=== PATIENT | female | born 1990 | race Caucasian/White ===

== ENCOUNTER 2021-08-13 22:16 | Inpatient (IN) | payer BC, OTHER ==
[~2021-08-13] VITALS: Ht 160 cm; Wt 83.0 kg
[~2021-08-13 22:16] MED LIST: AMOX500C25 PO; IBUP-2809 PO
[2021-08-13 22:22] VITALS: BP 125/90
--- NOTE | 2021-08-13 22:26 | NUR ---
PATIENT TO LOBBY
--- NOTE | 2021-08-13 23:48 | NUR ---
PATIENT TO ROOM 8 AMBULATORY
--- NOTE | 2021-08-14 00:06 | NUR ---
Patient BIB by family from home. C/O abdominal pain x 3 days. Patient reported, had mid right upper abdominal pain since Thursday with nausea. no diarrhea, no fever.
--- NOTE | 2021-08-14 00:32 | NUR ---
Dr. Guzman examining patient.
[2021-08-14] MEDS ORDERED: MORPHINE SULFATE 4 MG/ML SYR IVP ONE ×2 (00:40→04:25)
[2021-08-14] MEDS ORDERED: ONDANSETRON 4 MG/2 ML VIAL IVP ONE ×2 (00:40→05:50)
[2021-08-14] MEDS ORDERED: NACL 0.9% 1,000 ML IV ONE (00:40)
[2021-08-14 00:51] LABS: APPEARANCE,URINE CLEAR (CLEAR); BILIRUBIN,URINE NEGATIVE (NEGATIVE); BLOOD, URINE TRACE-I (NEGATIVE); COLOR,URINE YELLOW (YELLOW); LEUKOCYTE ESTERASE ,URINE NEGATIVE (NEGATIVE); NITRITE, URINE NEGATIVE (NEGATIVE); UGLUCOSE NEGATIVE (NEGATIVE)
[2021-08-14 00:53] LABS: BASOPHILS # (AUTO) 0.1 K/uL (0.00-0.22); BASOPHILS % (AUTO) 0.5 % (0.0-2.0); EOSINOPHILS # (AUTO) 0.2 K/uL (0-0.4); EOSINOPHILS % (AUTO) 1.2 % (0.0-4.0); HEMATOCRIT 40.4 % (36-48); HEMOGLOBIN 13.3 g/dL (12.0-16.0); LYMPHOCYTES % (AUTO) 16.1 % (20.5-51.1); MEAN CORPUSCULAR HEMOGLOBIN 28 pg (27-31); MEAN CORPUSCULAR HGB CONC 33 g/dL (33-37); MEAN CORPUSCULAR VOLUME 84.9 fL (80-94); MONOCYTES # (AUTO) 0.7 K/uL (0.8-1.0); MONOCYTES % (AUTO) 5.9 % (1.7-9.3); NEUTROPHILS # (AUTO) 9.3 K/uL (1.8-7.7); NEUTROPHILS % (AUTO) 76.3 % (42.2-75.2); PLATELET COUNT (AUTO) 267 K/uL (140-450); RED BLOOD CELL COUNT(AUTO) 4.76 MIL/uL (4.20-5.40); RED CELL DISTRIBUTION WIDTH 13.4 % (11.6-13.7); WHITE BLOOD COUNT (AUTO) 12.2 K/uL (4.8-10.8)
[2021-08-14 00:54] LABS: RBC,URINE 0-5 /HPF (0-5)
[2021-08-14 00:55] LABS: WBC,URINE 0-5 /HPF (0-5)
[2021-08-14 01:14] LABS: ALBUMIN 3.8 g/dL (3.4-5.0); CARBON DIOXIDE 28.6 mmol/L (21-32); CREATININE 0.7 mg/dL (0.6-1.3); POTASSIUM 3.6 mmol/L (3.5-5.1); TOTAL BILIRUBIN 0.4 mg/dL (0.0-1.0)
--- NOTE | 2021-08-14 01:45 | NUR ---
Patient taken to CT scan via wheel chair.
[2021-08-14] MEDS ORDERED: ALUMINUM HYD/MAG/SIMETHICONE 30 ML UDC PO ONE (01:55)
--- NOTE | 2021-08-14 03:49 | NUR ---
Patient is sleeping. vss.
--- NOTE | 2021-08-14 04:22 | NUR ---
Patient reported, abdominal pain, pain rate 10/09, Dr. Guzman notified.
--- NOTE | 2021-08-14 05:35 | NUR ---
Patient had nausea, Dr. Guzman notified.
--- NOTE | 2021-08-14 05:42 | NUR ---
US at bedside.
[2021-08-14] MEDS ORDERED: PIPERACILLIN/TAZOBACTAM 3.375 GM in DEXTROSE 5% 50 ML IV ONE (05:55)
--- NOTE | 2021-08-14 06:01 | NUR ---
COVID-19 swabs collected and sent to lab.
[2021-08-14] MEDS ORDERED: PIPERACILLIN/TAZOBACTAM 3.375 GM VIAL IV ONE ×2 (06:22→17:47)
--- NOTE | 2021-08-14 07:15 | NUR ---
Report given to MARY Muller and endorse care of patient.
--- NOTE | 2021-08-14 07:43 | NUR ---
30 Y/O F BIB FAMILY C/O ABD PAIN FOR 3 DAYS. NO C/O OF PAIN THIS MORNING. VITALS 107/65, 84P, 98 O2 ROOM AIR, 97.7 T. PT WALKED TO THE BATHROOM WITH NO ASSISTANS.
[2021-08-14] MEDS ORDERED: ZOLPIDEM 5 MG TAB PO PRN (07:50)
[2021-08-14] MEDS ORDERED: ACETAMINOPHEN 325 MG TAB PO PRN (07:50)
[2021-08-14] MEDS ORDERED: LORazepam 2 MG/ML VIAL IM/IVP PRN (07:50)
[2021-08-14] MEDS ORDERED: DOCUSATE SODIUM 100 MG GELCAP PO PRN (07:50)
[2021-08-14] MEDS ORDERED: POTASSIUM CHLORIDE 10 MEQ TABER PO PRN (07:50)
[2021-08-14] MEDS ORDERED: MORPHINE SULFATE 2 MG/ML SYR IVP PRN (07:50)
[2021-08-14] MEDS ORDERED: MAG SULF 2000 MG/WATER PREMIX 50 ML IV PRN (07:50)
[2021-08-14] MEDS ORDERED: SODIUM PHOS / POTASSIUM PHOS 1 PKT PDR PO PRN (07:50)
--- NOTE | 2021-08-14 08:13 | NUR ---
XR AT PT BEDSIDE
[2021-08-14] MEDS: NACL 0.9% 1,000 ML IV SCH ×2 (08:34→17:50)
[2021-08-14] MEDS: ONDANSETRON 4 MG/2 ML VIAL IVP PRN ×2 (08:36→10:58)
[2021-08-14] MEDS ORDERED: LORazepam 1 MG TAB PO PRN (08:55)
[2021-08-14 09:03] LABS: AMYLASE 31 U/L (25-115); CHOL/HDL RATIO 3.1 (1-4.5); HDL CHOLESTEROL 47 mg/dL (40-60); LDL (CALC) 85 mg/dL (60-100); LIPASE 74 U/L (73-393); PHOSPHORUS 3.4 mg/dL (2.5-4.9); THYROID STIMULATING HORMONE 1.21 uIU/mL (0.34-3.74); TRIGLYCERIDES 60 mg/dL (30-150)
--- NOTE | 2021-08-14 09:05 | NUR ---
Pt report given to CHARBEL MORFIN ROOM 104A. Transfer of care at this time.
--- NOTE | 2021-08-14 09:31 | NUR ---
RECEIVE ENDORSEMENT FROM ER NURSE LISSETT WHILE PATIENT TRANSFER TO BED, STABLE. PATIENT COME FOR ABD PAIN X 3DAYS, DIAGNOSIS CHOLECYSTITIS. PIV 20G AT LAC W/ NS INFUSING AT 100ML/HR. NPO AT THIS TIME
[2021-08-14 09:32] LABS: PROTHROMBIN TIME 9.6 secs (10.8-13.4)
--- NOTE | 2021-08-14 11:03 | NUR ---
DC PLANN[age] YRS OLD FEMALE PATIENT WAS ADMITTED FROM HOME WITH A DX OF CHOLECYSTITIS. PATIENT HAS NO MEDICAL HX. CXR SHOWED BORDERLINE PULMONARY VASCULAR CONGESTION. CT ABD AND US ABDOMEN SHOWED CHOLECYSTITIS. BLOOD AND URINE CULTURE PENDING. RAPID COVID TEST NEGATIVE. ADMINISTERED IVF, IV ABX ZOSYN MORPHINE IV FOR PAIN. CONSULTED WITH SURGEON DR BURRIS. DC PLAN TO GO HOME WHEN STABLE. CM TO FOLLOW Addendum: 08/14/21 at 1137 by Clarisse Sheets CM DC PLANNING: CM SPOKE WITH THE PATIENT AT BEDSIDE AND CONFIRMED HER ADDRESS AND CORRECTED PHONE NUMBER. SHE LIVES IN A CONVERTED GARAGE BEHIND HER PARENTS HOUSE AND LIVES WITH HER 3 CHILDREN. SHE SEES HER PMD [place] NEEDED AND IS NORMALLY INDEPENDENT IN ALL ACTIVITIES. 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 HER PARENTS ARE SUPPORTIVE AND AVAILABLE FOR PATIENT NEEDS. FAMILY WILL TRANSPORT THE PATIENT HOME WHEN SHE IS READY FOR DISCHARGE. CM WILL FOLLOW.
--- NOTE | 2021-08-14 11:21 | NUR ---
PATIENT HAS BEEN SCREENED AND CATEGORIZED LOW NUTRITION RISK. PATIENT WILL BE SEEN WITHIN 7 DAYS OF ADMISSION. 08/20/[address]
[2021-08-14 12:00] VITALS: BP 107/65
[2021-08-14 16:00] VITALS: BP 115/77
[2021-08-14] MEDS ORDERED: BUPIVACAINE MPF 0.25% 10 ML VIAL INJ ONE (17:04)
[2021-08-14] MEDS ORDERED: LIDOCAINE/EPI 1% 1:100000 20 ML VIAL INJ ONE (17:04)
[2021-08-14] MEDS ORDERED: fentaNYL citrate 0.05 MG/ML VIAL ONE (17:45)
[2021-08-14] MEDS ORDERED: PROPOFOL 200 MG/20 ML VIAL IV ONE (17:46)
[2021-08-14] MEDS ORDERED: SUCCINYLCHOLINE CHLORIDE 200 MG/10 ML VIAL IVP ONE (17:46)
[2021-08-14] MEDS ORDERED: ONDANSETRON 4 MG/2 ML VIAL IVP PRN (18:00)
[2021-08-14] MEDS ORDERED: HYDROmorphone 1 MG/ML AMP IVP PRN (18:00)
[2021-08-14] MEDS ORDERED: diphenhydrAMINE 50 MG/ML VIAL IVP PRN (18:00)
[2021-08-14] MEDS ORDERED: MEPERIDINE 25 MG/ML SYR IVP PRN (18:00)
[2021-08-14] MEDS: LACTATED RINGERS 1,000 ML IV SCH (18:00)
[2021-08-14] MEDS ORDERED: SEVOFLURANE 250 ML BTL INH ONE (18:05)
[2021-08-14] MEDS ORDERED: ROCURONIUM 50 MG/5 ML VIAL IV ONE (18:20)
[2021-08-14] MEDS ORDERED: ONDANSETRON 4 MG/2 ML VIAL ONE (18:28)
[2021-08-14] MEDS ORDERED: MEPERIDINE 50 MG/ML SYR ONE (18:38)
[2021-08-14] MEDS ORDERED: SUGAMMADEX SODIUM 200 MG/2 ML VIAL IV ONE (19:33)
--- NOTE | 2021-08-14 19:34 | NUR ---
ENDORSE PT TO PM SHIFT NURSE WHILE PATIENT IN OR FOR LAPAROSCOPIC CHOLECYSTOMY. PATIENT COME FOR ABD PAIN X 3DAYS, DIAGNOSIS CHOLECYSTITIS. PIV 20G AT LAC.
[2021-08-14] MEDS ORDERED: MEPERIDINE 25 MG/ML SYR ONE (19:49)
--- NOTE | 2021-08-14 20:50 | NUR ---
RECD. FROM OR S/P LAP CHOLECYSTECTOMY VIA BED ACCOMPANIED BY NURSE GUERRA. PATIENT RESTING IN BED, AWAKE, A/OX4. IV OF NS INFUSING AT 80 ML/HR, LEFT AC G20. RESPIRATION EVEN AND UNLABORED. INCISION IN THE ABDOMEN (4) WITH DERMA MAGALLON, OPEN TO AIR DRY, NO BLEEDING NOTED. ON BILATERAL LEG SEQUENTIALS. PAIN IN THE ABDOMEN 5/10, WILL MEDICATE PER MD ORDER. VS STABLE.
[2021-08-14] MEDS: HYDROcodone/APAP 5/325 MG 1 TAB TAB PO PRN (21:07)
[2021-08-14 22:00] VITALS: BP 116/77
[2021-08-15] VITALS: BP_SYST 104; BP_SYST 116; BP_DIAS 64; BP_DIAS 77
--- NOTE | 2021-08-15 | NUR ---
SLEEPING COMFORTABLY IN BED, NO DISTRESS NOTED.
[2021-08-15] MEDS: NACL 0.9% 1,000 ML IV SCH ×2 (00:17→03:50)
[2021-08-15] MEDS: ONDANSETRON 4 MG/2 ML VIAL IVP PRN (01:04)
--- NOTE | 2021-08-15 01:04 | NUR ---
PT COMPLAINTS OF NAUSEA, ONDANSETRON ADMINISTERED ORDERED.
--- NOTE | 2021-08-15 02:00 | NUR ---
NO NAUSEA NOTED, COMFORTABLE IN BED.
[2021-08-15] MEDS: LACTATED RINGERS 1,000 ML IV SCH ×2 (02:20→10:40)
[2021-08-15 04:00] VITALS: BP 106/68
--- NOTE | 2021-08-15 04:00 | NUR ---
ASSISTED OUT OF BED OT GO TO BR TO VOID, ABLE TO VOID FREELY MODERATE AMOUNT OF YELLOW URINE.
[2021-08-15] MEDS: HYDROcodone/APAP 5/325 MG 1 TAB TAB PO PRN ×2 (04:50→12:23)
--- NOTE | 2021-08-15 06:00 | NUR ---
ABLE TO SLEPT WELL. VS REMAIN STABLE.
[2021-08-15 06:19] LABS: BASOPHILS % (AUTO) 0.3 % (0.0-2.0); EOSINOPHILS % (AUTO) 0.2 % (0.0-4.0); HEMATOCRIT 36.1 % (36-48); HEMOGLOBIN 11.9 g/dL (12.0-16.0); LYMPHOCYTES % (AUTO) 16.4 % (20.5-51.1); MEAN CORPUSCULAR HEMOGLOBIN 28 pg (27-31); MEAN CORPUSCULAR HGB CONC 33 g/dL (33-37); MONOCYTES # (AUTO) 0.9 K/uL (0.8-1.0); MONOCYTES % (AUTO) 7.4 % (1.7-9.3); NEUTROPHILS # (AUTO) 9.1 K/uL (1.8-7.7); NEUTROPHILS % (AUTO) 75.7 % (42.2-75.2); PLATELET COUNT (AUTO) 230 K/uL (140-450); RED BLOOD CELL COUNT(AUTO) 4.25 MIL/uL (4.20-5.40); RED CELL DISTRIBUTION WIDTH 13.3 % (11.6-13.7)
[2021-08-15 06:33] LABS: ALBUMIN 2.8 g/dL (3.4-5.0); ANION GAP 7.4 (8-16); CARBON DIOXIDE 27.8 mmol/L (21-32); CREATININE 0.6 mg/dL (0.6-1.3); MAGNESIUM 1.9 mg/dL (1.8-2.4); POTASSIUM 4.2 mmol/L (3.5-5.1); TOTAL BILIRUBIN 0.7 mg/dL (0.0-1.0)
--- NOTE | 2021-08-15 07:10 | NUR ---
ENDORSED TO AM NURSE FOR CONTINUITY OF CARE.
--- NOTE | 2021-08-15 07:30 | NUR ---
RECEIVED PT CARE AND REPORT FROM HELGA MORFIN. PT IS RESTING IN BED SEMI-FOWLERS A&OX4, APPEARS CALM. NO VISIBLE S/S OF DISTRESS OR DISCOMFORT. DENIES ANY SOB. COMPLAINS OF PAIN AT IV SITE IN LEFT AC. SITE AROUND IV IS SWOLLEN WITHOUT REDNESS. PAUSED IV FLUIDS AND REMOVED IV. NO OTHER COMPLAINTS OF PAIN AT THIS TIME. CALL LIGHT WITHIN REACH, ALL NEEDS MET AT THIS TIME.
[2021-08-15 08:00] VITALS: BP 110/69
--- NOTE | 2021-08-15 10:41 | NUR ---
SPOKE WITH DR. MORENO, NO NEW IV INSERTION NEEDED AT THIS TIME. PT WILL BE DISCHARGED LATER TODAY.
[2021-08-15] MEDS ORDERED: BENZ100C6 PO (11:06)
[2021-08-15 11:47] VITALS: BP 110/70
[2021-08-15] MEDS ORDERED: HYDR-5080 PO (12:48)
[2021-08-15] MEDS ORDERED: IBUP-2213 PO (12:54)
== END 2021-08-15 13:30 | disposition home or self-care (01) | DRG 418 ==
LOC: MED 22:16 → MTU 08-14 06:49
PROVIDERS: ADMIT Family Medicine; ATTEND Family Medicine
PROC: 0FT44ZZ Resection of Gallbladder, Percutaneous Endoscopic Approach (ICD-10-PCS; principal; 2021-08-14 17:00)
DX: K81.2 Acute cholecystitis with chronic cholecystitis (principal); K82.1 Hydrops of gallbladder; Z20.822 Contact with and (suspected) exposure to COVID-19; D72.829 Elevated white blood cell count, unspecified; Z79.2 Long term (current) use of antibiotics; Z79.899 Other long term (current) drug therapy
CPT/HCPCS: 36415; 71045; 76705; 80053; 81001; 82150; 82374; 83036; 83690; 83735; 83880; 84100; 84439; 84443; 84484; 84703; 85025; 85610; 85730; 86886; 86900; 86901; 87040; 87070; 87075; 87081; 87086; 87205; 88304; 96361; 96365; 96375; 96376; 99285; J0330; J2001; J2175; J2270; J2405; J2543; J2704; J3010; J3490; J7030; Q0092

== ENCOUNTER 2022-05-22 16:28 | Emergency (ER) | payer BC, OTHER ==
[~2022-05-22] VITALS: Ht 165.1 cm; Wt 74.8 kg
[~2022-05-22 16:28] MED LIST changes: -AMOX500C25 PO; +HYDR-5080 PO; +IBUP-2213 PO; -IBUP-2809 PO
[2022-05-22 16:34] VITALS: BP 143/70
[2022-05-22 17:08] LABS: APPEARANCE,URINE CLEAR (CLEAR); BILIRUBIN,URINE NEGATIVE (NEGATIVE); BLOOD, URINE NEGATIVE (NEGATIVE); COLOR,URINE YELLOW (YELLOW); LEUKOCYTE ESTERASE ,URINE NEGATIVE (NEGATIVE); NITRITE, URINE NEGATIVE (NEGATIVE); UGLUCOSE NEGATIVE (NEGATIVE)
[2022-05-22 17:08] LABS: BASOPHILS # (AUTO) 0.1 K/uL (0.00-0.22); BASOPHILS % (AUTO) 0.9 % (0.0-2.0); EOSINOPHILS # (AUTO) 0.2 K/uL (0-0.4); EOSINOPHILS % (AUTO) 2.7 % (0.0-4.0); HEMATOCRIT 40.8 % (36-48); HEMOGLOBIN 13.7 g/dL (12.0-16.0); LYMPHOCYTES # (AUTO) 3.3 K/uL (2.5-16.5); LYMPHOCYTES % (AUTO) 35.6 % (20.5-51.1); MEAN CORPUSCULAR HEMOGLOBIN 29 pg (27-31); MEAN CORPUSCULAR HGB CONC 34 g/dL (33-37); MONOCYTES # (AUTO) 0.6 K/uL (0.8-1.0); MONOCYTES % (AUTO) 6.6 % (1.7-9.3); NEUTROPHILS % (AUTO) 54.2 % (42.2-75.2); PLATELET COUNT (AUTO) 211 K/uL (140-450); RED BLOOD CELL COUNT(AUTO) 4.69 MIL/uL (4.20-5.40); RED CELL DISTRIBUTION WIDTH 13.2 % (11.6-13.7); WHITE BLOOD COUNT (AUTO) 9.1 K/uL (4.8-10.8)
[2022-05-22 17:23] LABS: ANION GAP 13.3 (8-16); CREATININE 1.2 mg/dL (0.6-1.3); POTASSIUM 4.3 mmol/L (3.5-5.1); TOTAL BILIRUBIN 0.4 mg/dL (0.0-1.0)
[2022-05-22] MEDS ORDERED: ACET-8905 PO (18:38)
[2022-05-22] MEDS ORDERED: IBUP-2213 PO (18:38)
[2022-05-22 19:25] VITALS: BP 143/70
== END 2022-05-22 19:27 | disposition home or self-care (01) ==
LOC: MED 16:28
DX: N83.201 Unspecified ovarian cyst, right side (principal); Z90.49 Acquired absence of other specified parts of digestive tract; Z79.1 Long term (current) use of non-steroidal anti-inflammatories (NSAID); Z79.891 Long term (current) use of opiate analgesic
CPT/HCPCS: 36415; 76830; 80053; 81003; 83690; 85025; 99284; Q0092